=== PATIENT | male | born 1945 | race Caucasian/White ===

== ENCOUNTER 2018-01-09 18:25 | Inpatient (IN) | payer MEDICARE ==
--- NOTE | 2018-01-09 19:21 | ED ---
Shortness of Breath - HPI Summary HPI Summary: A 72 y/o male accompanied by family presents to ED c/o SOB. Additionally c/o chest pain/pressure reaching 2/10 in severity. As per triage, "Pt c/o chest pain and shortness of breath, especially when he sleeps and exerts himself". According to the patient, he believes he is experiencing the same symptoms as he did when he had a mitral valve replacement 6-7 years ago. He stated that his ripped mitral value was repaired as it was pushing blood into his chest. Additionally he had a bypass surgery. Furthermore, he has fevers in the night, denies chills. He stated that he is very SOB when he walks up stairs, bending over, taking a shower and completing every day routine activities. He stated that he just feels exhausted all the time. The symptoms became worse over the past couple weeks (today especially worse) coupled with hallucinations and edema of ankles. He noted that he has and takes medications and inhalers regularly. Does not take water pill. Current on several medications, just started Ativan 3 months ago. - History of Current Complaint Chief Complaint: EDChestPainROMI Time Seen by Provider: 01/09/18 18:53 Hx Obtained From: Patient Onset/Duration: Sudden Onset, Lasting Weeks, Still Present Timing: Constant Current Severity: Mild - 2/10 Dyspnea At: Rest Aggrevating Factors: Movement Alleviating Factors: Nothing Associated Signs & Symptoms: Fever, Edema - Allergy/Home Medications Allergies/Adverse Reactions: Allergies Allergy/AdvReac Type Severity Reaction Status Date / Time No Known Allergies Allergy Verified 01/09/18 21:40 Home Medications: Home Medications Anastrozole (NF) [Arimidex (NF)] 0.5 mg PO BID 01/09/18 [History Confirmed 01/09] Aspirin EC TAB* [Ecotrin EC Low Dose 81 MG*] 81 mg PO DAILY 01/09/18 [History Confirmed 01/09/18] Cyanocobalamin (Vitamin B-12) [Vitamin B-12] 1,000 mcg PO DAILY 01/09/18 [ History Confirmed 01/09/18] Metoprolol Succinate XL TAB* [Toprol XL TAB*] 50 mg PO DAILY 01/09/18 [History Confirmed 01/09/18] Oxybutynin XL TAB* [Ditropan XL TAB*] 5 mg PO DAILY 01/09/18 [History Confirmed 01/09/18] Ramipril CAP* [Altace CAP*] 10 mg PO DAILY 01/09/18 [History Confirmed 01/09/18] Rosuvastatin Calcium 20 mg PO DAILY 01/09/18 [History Confirmed 01/09/18] Tamsulosin CAP* [Flomax CAP*] 0.4 mg PO DAILY 01/09/18 [History Confirmed ] Vitamin E Acetate [Vitamin E] 1,000 units PO DAILY 01/09/18 [History Confirmed 01/09/18] PMH/Surg Hx/FS Hx/Imm Hx Endocrine/Hematology History: Denies: Hx Diabetes Cardiovascular History: Reports: Hx Hypertension, Other Cardiovascular Problems/ Disorders - AL Respiratory History: Reports: Hx Chronic Obstructive Pulmonary Disease (COPD) - Cancer History Cancer Type, Location and Year: Pancreatic - Surgical History Surgery Procedure, Year, and Place: abdominal hernia, bypass, mitral valve replacement Infectious Disease History: No Infectious Disease History: Denies: Traveled Outside the [place] in Last 30 Days - Family History Known Family History: Positive: Diabetes, Other - AL, prostate cancer, lung disease, abdominal cancer - Social History Alcohol Use: Occasionally Substance Use Type: Reports: None Smoking Status (MU): Former Smoker Review of Systems Positive: Fever, Fatigue. Negative: Chills Positive: Chest Pain Positive: Shortness Of Breath Positive: Edema Psychological: Other - POSITIVE: Hallucinations All Other Systems Reviewed And Are Negative: Yes Physical Exam - Summary Physical Exam Summary: General: well-appearing, no pain distress Skin: warm, color reflects adequate perfusion, dry Head: normal Eyes: EOMI, RENATA ENT: normal Neck: supple, nontender Respiratory: crackles of base Cardiovascular: RRR Abdomen: soft, nontender Bowel: present Musculoskeletal: strength/ROM intact, bilateral pedal edema Neurological: sensory/motor intact, A&O x3 Psychological: affect/mood appropriate Triage Information Reviewed: Yes Vital Signs On Initial Exam: Initial Vitals Temp Pulse Resp BP Pulse Ox 98.6 F 83 20 136/61 93 01/09/18 18:28 01/09/18 18:28 01/09/18 18:28 01/09/18 18:28 01/09/18 18:28 Vital Signs Reviewed: Yes Diagnostics - Vital Signs Vital Signs Temp Pulse Resp BP Pulse Ox 01/09/18 18:28 98.6 F 83 20 136/61 93 - Laboratory Result Diagrams: 01/09/18 19:19 01/09/18 19:19 Lab Statement: Any lab studies that have been ordered have been reviewed, and results considered in the medical decision making process. - Radiology CXR Radiology Interpretation Completed By: ED Physician - Vascular congestion. Pending official report. - EKG 1949 Cardiac Rate: Tachycardia - 163 BPM EKG Rhythm: Sinus Tachycardia EKG Interpretation: wide complex irregularly irregular tachycardia 1999 Cardiac Rate: NL - 65 BPM EKG Rhythm: Sinus Rhythm - ventricular bigeminy and trigeminy, ST depressions in lateral leads. Re-Evaluation - Re-Evaluation First Eval Re-Evaluation Time: 19:47 Comment: Patient is in ventricular tachycardia. In the ED room, the patient has a pulse of 169 BPM, O2 saturation of 94% and blood pressure of 109/84. Course/Dx - Course Course Of Treatment: Medications reviewed. Allergies noted. AMIODORONE, HEPARIN , MAGNESIUM AND LASIX GIVEN IN ED. ADMIT HOSPITALIST. DISCUSSED WITH CARDIOLOGY , DR EMMANUEL, WHO SAW THE PATIENT IN THE ED. - Diagnoses Provider Diagnoses: Ventricular tachycardia, CHF (congestive heart failure) - Physician Notifications Discussed Care of Patient With: Jospe Messina Time Discussed With Above Provider: 20:02 Instructed by Provider To: Other - Accepts patient for admission. Consult with Dr. Celestine Emmanuel at 2027 who will consult with patient. He also recommends more magnesium, heparin, lasics and amiodarone. - Critical Care Time Critical Care Time: 75-104 min Discharge - Sign-Out/Discharge Documenting (check all that apply): Patient Departure - ADMIT - Discharge Plan Condition: Guarded Disposition: ADMITTED TO [facility] Referrals: No Primary Care Phys,NOPCP [Primary Care Provider] - - Billing Disposition and Condition Condition: GUARDED Disposition: Admitted to [facility] - Attestation Statements Document Initiated by Scribe: Yes Documenting Scribe: Cayden Bennett Provider For Whom Scribe is Documenting (Include Credential): Slick Lainez MD Scribe Attestation: Cayden Hollis, scribed for Slick Lainez MD on 01/09/18 at [id number]. Scribe Documentation Reviewed: Yes Provider Attestation: The documentation as recorded by the scribe, Cayden Bennett accurately reflects the service I personally performed and the decisions made by me, Slick Lainez MD
[2018-01-09 19:30] LABS: ABS Basophils 0 10^3/ul (0-0.2); ABS Eosinophils 0.1 10^3/ul (0-0.6); ABS Lymphocytes 0.7 10^3/ul (1.0-4.8); ABS Monocytes 0.5 10^3/ul (0-0.8); ABS Neutrophils 3.8 10^3/ul (1.5-7.7); ABS Nucleated RBC 0 10^3/ul; Eosinophil % 1.4 % (0-6); Hematocrit 42 % (42-52); Lymphocyte % 14.3 % (25-47); Mean Corpuscular HGB Conc 33 g/dl (31-36); Mean Corpuscular Hemoglobin 32 pg (27-31); Mean Corpuscular Volume 96 fL (80-94); Mean Platelet Volume 10.3 um3 (7.4-10.4); Nucleated Red Blood Cells % 0.1; Platelet Count 111 10^3/ul (150-450); Red Blood Count 4.38 10^6/ul (4.00-5.40); Red Cell Distribution Width 15 % (10.5-15); White Blood Count 5.1 10^3/ul (3.5-10.8)
[2018-01-09 19:39] LABS: INR 1.14 (0.77-1.02)
[2018-01-09] MEDS ORDERED: Amiodarone 150 MG IVPREMIX* 150 MG/100 ML BAG IV ONE ×2 (19:49→20:35)
[2018-01-09] MEDS ORDERED: Amiodarone 360 MG IVPREMIX* 360 MG/200 ML BAG IV ONE ×2 (19:49→22:03)
[2018-01-09] MEDS ORDERED: Magnesium Sulfate 2 GM IV* 2 GM/50 ML BAG IVPB ONE (20:36)
[2018-01-09] MEDS ORDERED: Furosemide IV* 10 MG/ML VIAL (40 MG) IV ONE (20:38)
[2018-01-09] MEDS ORDERED: Heparin DRIP 25,000 UNITS(*) 25,000 UNITS/500 ML BAG IV SCH ×3 (20:45→21:45)
[2018-01-09] MEDS ORDERED: fentaNYL* 50 MCG/ML 2 ML VIAL (100 MCG VIAL) ONE (21:05)
[2018-01-09] MEDS ORDERED: Heparin VIAL(*) 5000 UNITS/ML VIAL (FIVE THOUSAND) IV PRN (21:11)
[2018-01-09] MEDS ORDERED: fentaNYL* 50 MCG/ML 2 ML VIAL (100 MCG VIAL) IV SLOW PU ONE ×2 (21:20→22:20)
[2018-01-09] MEDS ORDERED: Heparin VIAL(*) 5000 UNITS/ML VIAL (FIVE THOUSAND) ONE (21:28)
[2018-01-09] MEDS ORDERED: Aspirin TAB* 325 MG PO ONE (21:31)
[2018-01-09] MEDS ORDERED: LORazepam INJ* 2 MG/ML 1 ML VIAL IV PUSH ONE ×2 (21:39→22:20)
--- NOTE | 2018-01-09 21:39 | CONSULT ---
Subjective Date of Service: 01/09/18 Interval History: Date of consult and admission 01/09/2018 Service: Hospitalist CC: Dyspnea Reason for consult: CHF, Ventricular tachycardia HPI Mr. Frazier is a 72 year old man with a history of MV repair and cabg x 1 in 2010. He has prior tobacco use and copd and interstitial lung disease. He states they he had a heart catheterization 3 or 4 months ago (he is unsure why) but they found the graft that "did not take" and he did not need a stent. He has had progressive dyspnea all summer to the point of orthopnea and PND last several days. He has had confusion earlier today and agitation and took 3 of 0.5 mg ativans which he usually does not take. He has had palpitations for years unchanged. He has had lightheadedness but no presyncope or syncope. He was found with agitation, decompensated HF and recurrent incessant ventricular tachycardia Currently he has received - total 600 mg IV amiodarone in 150 mg increments in bolus followed by infusion protocol and also 400 mg oral amiodarone - 5 mg IV lopressor followed by 25 mg PO metoprolol - IV magnesium - 3 mg IV ativan and 100 mcg IV fentanyl - 20 mg IV lasix x 2 Late received 5 mg IV versed for agitation with good effect, remains with short episodes of NSVT (improved) Pmhx/surgical hx MV repair and cabg x [address] Montanez at [facility] ~ 2010 with ? post -op Afib. LVEF was normal at that time. He was told heart muscle was weak at [facility] this winter but details of this are very uncertain. Patient states had an angiogram earlier this year and no intervention was performed. [facility] for benign pancreatic lesions ~ 2010 Knee surgery Hernia surgery HTN Dyslipidemia CAD COPD/Interstitial lung disease Soc: 1 PPD since teenage years until a year ago, occasional alcohol, no drugs. Lives most of year in [place]. Lives 4 [place]/2 months in [place], [place]. Family hx: Mother had MAC lung disease, father CAD Allergies: NKDA Medications Active Medications: Albuterol/Ipratropium (Combivent Respimat(Nf)) 2 puff INH Q4H PRN; Protocol PRN Reason: SOB/WHEEZING Aspirin (Aspirin Ec Tab*) 81 mg PO DAILY DONAL Atorvastatin Calcium (Lipitor*) 40 mg PO DAILY [facility] Heparin Sodium (Porcine) (Heparin Vial(*)) 0 units IV .FOR BOLUSES PRN PRN Reason: HEPARIN DRIP BOLUSES Last Admin: 01/09/18 21:29 Dose: 6,000 units Heparin Sodium/Dextrose (Heparin Drip 25,000 Units(*)) 25,000 units in 500 mls @ 0 mls/hr IV PER RATE DONAL; Protocol Amiodarone HCl (Nexterone 360 Mg/200 Ml Ivpremix*) 360 mg in 200 mls @ 33.333 mls/hr IV ONCE ONE Stop: 01/10/18 04:02 Midazolam HCl 100 mg/ Sodium (Chloride) 100 mls @ 1 mls/hr IV Q24H DONAL; Protocol Metoprolol Tartrate (Lopressor Tab*) 25 mg PO Q8H DONAL Last Admin: 01/09/18 22:15 Dose: 25 mg (Ellipta 62.5 Mg) 62.5 mg INH DAILY [facility] Oxybutynin Chloride (Ditropan Xl Tab*) 5 mg PO DAILY [facility] Ramipril (Altace Cap*) 10 mg PO DAILY [facility] Tamsulosin HCl (Flomax Cap*) 0.4 mg PO DAILY [facility] Home Medications: Anastrozole (NF) [Arimidex (NF)] 0.5 mg PO BID 01/09/18 [History Confirmed 01/09] Aspirin EC TAB* [Ecotrin EC Low Dose 81 MG*] 81 mg PO DAILY 01/09/18 [History Confirmed 01/09/18] Cyanocobalamin (Vitamin B-12) [Vitamin B-12] 1,000 mcg PO DAILY 01/09/18 [ History Confirmed 01/09/18] Metoprolol Succinate XL TAB* [Toprol XL TAB*] 50 mg PO DAILY 01/09/18 [History Confirmed 01/09/18] Oxybutynin XL TAB* [Ditropan XL TAB*] 5 mg PO DAILY 01/09/18 [History Confirmed 01/09/18] Ramipril CAP* [Altace CAP*] 10 mg PO DAILY 01/09/18 [History Confirmed 01/09/18] Rosuvastatin Calcium 20 mg PO DAILY 01/09/18 [History Confirmed 01/09/18] Tamsulosin CAP* [Flomax CAP*] 0.4 mg PO DAILY 01/09/18 [History Confirmed ] Vitamin E Acetate [Vitamin E] 1,000 units PO DAILY 01/09/18 [History Confirmed 01/09/18] apmelata combivent Review of Systems - Measurements Intake and Output: Intake and Output Last 24 Hours 01/07/18 01/08/18 01/09/18 01/10/18 06:59 06:59 06:59 06:59 Intake Total 100 Balance 100 Weight 176 lb Intake: IV Fluids 100 - Review of Systems Constitutional Symptoms: Positive: Fatigue Negative: Weight Gain, Weight Loss Dermatology: Negative: Rash, Skin Lesions HEENT: Negative: Change in Hearing, Vertigo Eyes: Negative: Change in Vision, Double Vision Thyroid: Negative: Weight Loss, Weight Gain Pulmonary: Positive: Cough, Sputum, Wheezing, Shortness of Breath, COPD, Exercise Intolerance Cardiology: Positive: Shortness of Breath, Palpitations, Paroxysmal Nocturnal Dyspnea, Orthopnea Negative: Chest Pain, Swelling of Ankles, Peripheral Vascular Dis, Faintness , Syncope, Claudication Gastroenterology: Negative: Normal, Abdominal Pain, Nausea, Vomiting, Anorexia, Indigestion, Difficulty Swallowing, Heartburn, Constipation, Diarrhea, Blood in Stools, Change in Bowel Habits, Haematemesis, Melena, Other Genital - Urinary: Positive: Normal Negative: Dysuria, Hematuria Genitourinary - Male: Negative: Prostatism, Family Hx of Prostate Cancer Musculoskeletal: Negative: Joint Pain, Joint Stiffness Endocrinology: Positive: Thyroid Problems Negative: Polydipsia, Polyuria Hematologic/Lymphatic: Positive: Use of Antiplatelet Drugs Negative: Use of Anticoagulant Neurology: Negative: Diplopia, Numbness\\Paresthesiae Psychiatry: Negative: Unusual Anxiety, Suicidal Ideation Allergic/Immunologic: Negative: Hx HIV, Immunocompromise Review of Systems Statement: All other review of systems negative, unless stated above. Objective Vital Signs: Temp Pulse Resp BP Pulse Ox 98.6 F 83 20 136/61 93 01/09/18 18:28 01/09/18 18:28 01/09/18 21:23 01/09/18 18:28 01/09/18 18:28 Appearance: Patient appears agitated and anxious. Ears/Nose/Mouth/Throat: Clear Oropharnyx Neck: Trachea Midline, - - + jvd Respiratory: - - Patient has tachypnea and increased work of breathing with R>L rales Cardiovascular: RRR, No Edema, - - with frequent ectopy, no significnat murmur Abdominal: NL Sounds; No Tenderness; No Distention Extremities: No Clubbing, Cyanosis Skin: No Rash or Ulcers Neurological: Alert and Oriented x 3 Laboratory Results: 01/09/18 19:19 01/09/18 19:19 INR (Anticoag Therapy) 1.14 (0.77-1.02) H 01/09/18 19:19 APTT 31.2 seconds (26.0-36.3) 01/09/18 19:19 Total Bilirubin 1.00 mg/dL (0.2-1.0) 01/09/18 19:19 AST 13 U/L (13-39) 01/09/18 19:19 ALT 17 U/L (7-52) 01/09/18 19:19 Alkaline Phosphatase 46 U/L (34-104) 01/09/18 19:19 CK-MB (CK-2) 3.0 ng/mL (0.6-6.3) 01/09/18 19:19 B-Natriuretic Peptide 1942 pg/mL (-100) H 01/09/18 19:19 Total Protein 6.4 g/dL (6.4-8.9) 01/09/18 19:19 Albumin 3.9 g/dL (3.2-5.2) 01/09/18 19:19 Globulin 2.5 g/dL (2-4) 01/09/18 19:19 Albumin/Globulin Ratio 1.6 (1-3) 01/09/18 19:19 TSH 1.87 mcIU/mL (0.34-5.60) 01/09/18 19:19 01/09/18 19:19 Troponin I 0.02 mg 1.9 Diagnostic Imaging: CT 05/2017: Interval development of more pronounced interstitial infiltrates and innumerable ill defined micronodules. The differential diagnosis includes infectious or inflammatory process including respiratory bronchiolitis in the setting of smoking however underlying lymangitic carcinomatosis cannot be excluded. Increase in size and number of mediastinal lymph nodes although none are significantly enlarged. These may be reactive or neoplastic. Patient has a family history of MAC. He was told that the CT findings were not due to cancer and that it was scar tissue but he was not told what was from. 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 Cardiac catheterization 12/2010: Pre-op for Severe MVP: [facility] Dr. Darell Sims. LV gram normal LVEF. LM mild non-significant disease. LAD moderate 60% mid LAD lesion, mild disease elsewhere. Mild Lcx disease, RCA with 30-40% proximal-mid disesae. Cardiac catheterization earlier this year, thought might need stent but did not need CXR this admission: Prior sternotomy, MV and TV ring noted, b/l interstitial edema EKG Data: EKG admission: NSR, st/t changes diffusely suggestive of myocardial ischemia. PVC's with RBBB morphology and superior axis ekg repeat: Periods of ventricular tachycardia with same PVC morphology Assessment/Plan 1. Incessant monorphic VT, improved. Ruled out for ACS. 2. CHF 3. Prior primary MV repair also with TV repair 4. CAD, no history of [place] 5. COPD/ILD, history of tobacco use 6. HTN - Continue versed gtt to help reduce adrenergic drive to reduce arrhythmia burden. Patient not currently taking oral medications due to sedation - Continue IV amiodarone infusion protocol. Can give another 150 mg IV slow bolus x 3 overnight PRN. Obviously this is not a manager intermediate option given his lung disease. If has recurrent sustained episodes despite this and more beta- ochoa as BP tolerates will start lidocaine gtt. - Start IV lopressor 5 mg IV q6. Will increase as needed - s/p IV 40 mg lasix, good UOP. Will help lower LVEDP and hopefully reduce arrhythmia burden. Trend BMP/Mg and replace K and Mg as needed - Echo for later this AM ordered. - Will try to obtain echo and cardiac cath report from earlier this year for comparison. I am unsure at this point which came first, the VT or CHF. Regardless both will be continued to be treated. 120 minutes of bedside direct critical care time provided Thank you for allowing me to participate in the cardiovascular care of this patient
[2018-01-09] MEDS ORDERED: Aspirin 81 mg CHEW TAB* 81 MG TAB.CHEW ONE (21:43)
[2018-01-09] MEDS ORDERED: LORazepam INJ* 2 MG/ML 1 ML VIAL ONE (21:43)
[2018-01-09] MEDS ORDERED: Metoprolol Tartrate TAB* 25 MG ONE (21:43)
[2018-01-09] MEDS ORDERED: Metoprolol Tartrate TAB* 25 MG PO SCH (22:00)
[2018-01-09] MEDS ORDERED: Aspirin 81 mg CHEW TAB* 81 MG TAB.CHEW PO ONE (22:00)
[2018-01-09] MEDS ORDERED: Metoprolol Tartrate IV* 1 MG/ML 5 ML VIAL IV ONE (22:25)
[2018-01-09] MEDS ORDERED: NS 0.9% 100 ML* 100 ML ONE (22:29)
[2018-01-09] MEDS ORDERED: Albuterol/Ipratropium RESP(NF) MDI (Combivent Respimat) INH PRN (22:36)
[2018-01-09] MEDS ORDERED: Amiodarone IV VIAL* 3 ML ONE (22:57)
[2018-01-09] MEDS ORDERED: Amiodarone TAB* 400 MG ONE (22:57)
[2018-01-09] MEDS ORDERED: Furosemide IV* 10 MG/ML 2 ML VIAL (20 MG) ONE (22:57)
[2018-01-09] MEDS ORDERED: Amiodarone TAB* 400 MG PO ONE (22:58)
[2018-01-09] MEDS ORDERED: Furosemide IV* 10 MG/ML 2 ML VIAL (20 MG) IV ONE (22:58)
[2018-01-09] MEDS ORDERED: Dexmedetomidine* 400 MCG in NS 0.9% 100 ML* 96 ML IVPB SCH ×4 (23:00)
[2018-01-09] MEDS ORDERED: Midazolam* 1 MG/ML 10 ML VIAL (10 MG) ONE (23:07)
[2018-01-09] MEDS ORDERED: Ziprasidone IM INJ* 20 MG/ML VIAL ONE (23:09)
[2018-01-09] MEDS ORDERED: Midazolam BAG 1 MG/ML* 100 MG/100 ML BAG IV ONE (23:18)
[2018-01-09] MEDS ORDERED: Midazolam IV for DRIP* 100 MG in NS 0.9% 100 ML* 80 ML IV SCH (23:45)
[2018-01-10] MEDS: Metoprolol Tartrate IV* 1 MG/ML 5 ML VIAL IV SCH ×2 (00:06→06:21)
--- NOTE | 2018-01-10 02:21 | HP ---
CC: Dr. Levon Oden; Dr. Darell Sims * HISTORY AND PHYSICAL: DATE OF ADMISSION: 01/09/18 PRIMARY CARE PROVIDER: Dr. Levon Oden in [place], [place]. PRIMARY SILK WEAVER: Dr. Darell Sims, [place], [place]. CARDIAC SURGEON: Dr. Montanez at [place], [place]. ATTENDING PROVIDER: Dr. Josep Messina * (DICTATED BY BENNY PEÑA, JIMMIE) CHIEF COMPLAINT: Shortness of breath. HISTORY OF PRESENT ILLNESS: Mr. Frazier is a 72-year-old male with past medical history significant for asthma, allergies, benign pancreatic tumor, atrial fibrillation, BPH, hypertension, coronary artery disease, COPD, who states for several months now has not been feeling well. Earlier this year, he underwent a cardiac catheterization as he does follow up his heart issues. He states that he had no findings necessitating a stent placement at that time. He states he was having similar symptoms with fatigue, difficulty with shortness of breath with exertion approximately 7 years ago when he had a mitral valve repair. He denies any fevers, chills. He reports chest tightness for a few days. He states he has been short of breath all summer since he has been to [place]. He reports having worse shortness of breath with exertion, walking across the yard. He also notes that he is unable to sleep in bed and has to sleep in a recliner chair for approximately the last 3 to 4 weeks. He states that shortness of breath improves when he sits up. He had nausea 3 days ago. Two days ago, he reports diarrhea. He reports urinary frequency and urgency at baseline due to his BPH. He states that he feels as though his abdomen is bit more distended than normal and he has had some lower extremity edema that is improved today. He reports lightheadedness and dizziness. The patient feels that in general he has been having these symptoms for several months, but they have worsened over the last few weeks and even more so in the last few days. He has been having some hallucinations today. He denies currently being on a diuretic or blood thinning medication. He presented to the emergency room for further evaluation of his symptoms. In the emergency room, he was found to have tachycardic rhythm with a rate of 163, this rhythm appeared to be V-tach vs an atrial fibrillation with variance, within a few minutes he had a repeat EKG showing sinus rhythm with rate of 80 and ventricular bigeminy. He then again had a repeat EKG showing a sinus rhythm and another repeat EKG showing extreme tachycardia with rates up to the 160s, this appeared to be more of a ventricular tachycardia. He received a total of 450 mg of amiodarone bolus, was started on an amiodarone drip. He was also started on a heparin drip, received 20 mg of IV Lasix. He was given [address] Celestine Raygoza with Cardiology came to evaluate the patient. Hospice was also asked to evaluate the patient for admission. PAST MEDICAL HISTORY: 1. Asthma. 2. Allergies. 3. Benign pancreatic tumor. 4. BPH. 5. COPD. 6. Hypertension. 7. Coronary artery disease. 8. Possible history of atrial fibrillation. PAST SURGICAL HISTORY: 1. Status post bilateral cataract extractions. 2. Status post mitral valve repair and 1 vessel CABG. 3. Status post Whipple procedure. 4. Status post knee surgery. 5. Status post hernia surgery. 6. Status post several plastic surgeries. HOME MEDICATIONS: Include: 1. Tamsulosin 0.4 mg oral daily. 2. Rosuvastatin 20 mg oral daily. 3. Ramipril 10 mg oral daily. 4. Metoprolol succinate 50 mg oral daily. 5. Anastrozole 0.5 mg oral twice daily. 6. Ditropan XL 5 mg oral daily. 7. Aspirin 81 mg oral daily. 8. Vitamin E 1000 units oral daily. 9. Vitamin B12 1000 mcg oral daily. 10. Combivent Respimat inhaler 1 to 2 puffs inhalation every 4 hours as needed for shortness of breath or wheeze. 11. Ellipta inhaler 62.5 mcg inhalation 1 puff daily. ALLERGIES: No known drug allergies. FAMILY HISTORY: His father had a history of MAC. Father with a history of coronary artery disease. Paternal uncles with history of coronary artery disease. Maternal aunts with history of diabetes. Maternal grandmother with diabetes. Multiple uncles with prostate cancer. His father also had prostate cancer. He had a paternal grandmother with stomach cancer and a paternal grandfather with lung cancer. REVIEW OF SYSTEMS: I performed an 11-point review of systems. All the pertinent positives and negatives are mentioned in the history of present illness. The remaining review of systems is negative. PHYSICAL EXAMINATION GENERAL APPEARANCE: The patient is alert, pleasant, appears to be in no acute distress. VITAL SIGNS: Temperature 98.6, heart rate 83, respiratory rate 20, O2 sat 93% on room air, blood pressure 136/61. HEENT: Normocephalic, atraumatic. Pupils are equal and reactive to light. Extraocular movements are intact. RESPIRATORY: There is no accessory muscle use. The lungs have rhonchi, scattered bilateral. Crackles to bilateral bases. CARDIOVASCULAR: Regular rate and rhythm. S1, S2 present. Tachycardic. There are no murmurs, rubs, or gallops. ABDOMEN: Large, soft, nontender. There are bowel sounds present x4. EXTREMITIES: There is trace bilateral pedal edema. DP and PT pulses are 1+ and symmetric. MUSCULOSKELETAL: There is no clubbing or cyanosis noted. The patient exhibits good strength in all extremities. NEUROLOGICAL: The patient is alert and oriented x4, although he is having some periods of confusion. PSYCHOLOGICAL: The patient is calm and cooperative. SKIN: There are no rashes or abnormalities seen. DIAGNOSTIC STUDIES/LABORATORY DATA: Sodium 136, potassium 4.5, chloride 104, CO2 27, BUN 21, creatinine 1.31. Magnesium 1.9. INR 1.14. D-dimer 406. BNP 194. TSH 1.87. Troponin 0.02. White blood cell count 5.1, hemoglobin 14.0, hematocrit 42, platelet count 111. Chest x-ray from today, my interpretation is vascular congestion, it is pending official read. EKG from 1949 shows extreme tachycardia with a rate of 163, this could represent V- tach or an atrial fibrillation with variance since it has wide complex and irregularly irregular. EKG from 1957 shows sinus rhythm, rate of 80. The patient has a PVC. EKG from 1999 shows sinus rhythm, rate of 65, ventricular bigeminy. ST depressions in the lateral leads. EKG from 2024 shows an extreme tachycardia, rate of 149, this rhythm appears to be irregular and consistent with V-tach. IMPRESSION: Mr. Frazier is a 72-year-old male with past medical history significant for asthma, environmental allergies, benign pancreatic tumor, possible atrial fibrillation, benign prostatic hypertrophy, chronic obstructive pulmonary disease, hypertension, coronary artery disease, who presented to the hospital with complaints of shortness of breath. He will be admitted as an inpatient for atrial fibrillation with rapid ventricular rate vs ventricular tachycardia, shortness of breath and congestive heart failure. ASSESSMENT AND PLAN: 1. Ventricular tachycardia. Initially, the patient's EKG appeared to be an atrial fibrillation with variance, but upon repeat EKGs, his rhythm appeared to be consistent with ventricular tachycardia. He received amiodarone, a total of 450 mg bolus, and was started and on amiodarone drip in the ER. He was started on a heparin drip. He received IV metoprolol. He was started on metoprolol tartrate in the ER. He was seen at bedside by Cardiology and he was started on a heparin drip. His rate was better controlled. 2. Shortness of breath. I suspect this is secondary to acute congestive heart failure exacerbation. The patient has no history of congestive heart failure . He is not currently on diuretics, give him 20 mg of IV Lasix here in the ER to see how he diureses. He will be continued on diuretics per Cardiology. We are going to get an echocardiogram tomorrow and the differential for his shortness of breath is also pulmonary embolus. His D-dimer is elevated at 406. He is not stable enough for a CTA tonight. He will fully anticoagulated on heparin and once he stabilize tomorrow, he can have a CTA. 3. Chest tightness. We will trend the patient's troponins. Monitor him on telemetry. He will be continued on medical management for his coronary artery disease. 4. Hypertension. He has mostly been normotensive in the emergency room. We will continue him on metoprolol and ramipril. 5. Asthma. The patient will be continued on his home Ellipta and as needed Combivent. 6. Coronary artery disease. The patient will be continued on his home aspirin , statin, metoprolol. 7. Benign prostatic hypertrophy. He will be continued on his home Ditropan and Flomax. 8. Fluids, electrolytes, and nutrition: He will be on a low sodium, heart- healthy diet. 9. Code status: Full code. 10. DVT prophylaxis: He is at high risk, will be on heparin drip. 11. Disposition: Inpatient. TIME SPENT: Time for this admission was approximately 90 minutes, greater than half of that was spent at bedside with the patient in critical care time. The case has been discussed with the attending, Dr. Messina, who agrees with the plan of care. BENNY FELTON, SECURITY DOOR INSTALLER [id number]/[facility] #: [id number] DIANE
[2018-01-10] MEDS ORDERED: Midazolam* 1 MG/ML 2 ML VIAL (2 MG) ONE (02:58)
[2018-01-10] MEDS ORDERED: Midazolam* 1 MG/ML 2 ML VIAL (2 MG) IV ONE (03:00)
[2018-01-10] MEDS ORDERED: Midazolam* 1 MG/ML 10 ML VIAL (10 MG) ONE (03:19)
[2018-01-10] MEDS ORDERED: fentaNYL* 50 MCG/ML 2 ML VIAL (100 MCG VIAL) ONE (03:47)
[2018-01-10] MEDS ORDERED: Morphine INJ* 2 MG/ML 1 ML SYRINGE (TWO MG - NEW SYRINGE VERSION) IV ONE (03:50)
[2018-01-10] MEDS ORDERED: Morphine INJ* 2 MG/ML 1 ML SYRINGE (TWO MG - NEW SYRINGE VERSION) IV PRN (03:50)
[2018-01-10] MEDS ORDERED: Dexmedetomidine* 400 MCG in NS 0.9% 100 ML* 96 ML IVPB SCH (04:00)
[2018-01-10] MEDS ORDERED: Morphine INJ* 2 MG/ML 1 ML SYRINGE (TWO MG - NEW SYRINGE VERSION) ONE (04:03)
[2018-01-10] MEDS ORDERED: Succinylcholine* 20 MG/ML 10 ML VIAL ONE ×2 (04:22→04:29)
[2018-01-10] MEDS ORDERED: Etomidate* 2 MG/ML 20 ML VIAL (40 MG) ONE (04:29)
[2018-01-10] MEDS: Propofol* 100 ML ONE ×2 (04:30→10:08)
[2018-01-10] MEDS ORDERED: Propofol* 10 MG/ML 20 ML BTL IV PUSH ONE (04:37)
--- NOTE | 2018-01-10 05:24 | PN ---
Progress Note - Progress Note Date of Service: 01/10/18 Note: Mr Frazier was initially able to be adequately sedated with midazolam GTT, but this eventually became ineffective despite increasing the dose to 5mg/hr. He was given midazolam boluses of 3mg followed by 5mg, fentanyl 50mcgs, and morphine 2mg x2 without obtaining adequate sedation. He would fight and toss in bed for 2-3 minutes and the relax and develop apnea before rousing to fight briefly again with desaturation into the mid-80s. In preparation for intubation a nasal trumpet insertion was attempted in the L nare unsuccessfully precipitating mild/mod epistaxis. It was successfully placed in the R nare and ambu bag initiated to good effect. After sedation and paralysis, a quick look with the [place] revealed posterior pharyngeal blood and airway edema prompting the ED physician to be called. No attempts to intubate were made to prevent worsening of the edema until A MD Yehuda ED arrived and assumed the role of intubating physician. The intubation was difficult and an ABC was called. Please see Dr Blackman's and the ABC notes for details. At no time did Mr Frazier lose his pulse nor develop any circulatory or significant rhythm issues. Dr Edin MD intesivist on-call was apprised.
[2018-01-10 06:30] LABS: ABS Basophils 0 10^3/ul (0-0.2); ABS Eosinophils 0 10^3/ul (0-0.6); ABS Lymphocytes 0.3 10^3/ul (1.0-4.8); ABS Monocytes 0.5 10^3/ul (0-0.8); ABS Nucleated RBC 0 10^3/ul; Eosinophil % 0.1 % (0-6); Hematocrit 39 % (42-52); Mean Corpuscular HGB Conc 33 g/dl (31-36); Mean Corpuscular Hemoglobin 32 pg (27-31); Mean Corpuscular Volume 97 fL (80-94); Mean Platelet Volume 10.4 um3 (7.4-10.4); Nucleated Red Blood Cells % 0; Platelet Count 89 10^3/ul (150-450); Red Blood Count 4.06 10^6/ul (4.00-5.40); Red Cell Distribution Width 15 % (10.5-15); White Blood Count 6.8 10^3/ul (3.5-10.8)
[2018-01-10 06:32] LABS: EGFR Non-African American 52.1 (>60)
--- NOTE | 2018-01-10 06:42 | ED ---
Progress - Progress Note Progress Note: Time:0500 I was called emergently by ICU staff and Dr. Forbes to intubate the patient. Upon arrival patient was bagged by respiratory therapist with bag mask valve. Patient was bleeding from the mouth. I did use a gliedoscope to intubate patient. Upon introducing the Gliedoscope blade. The epiglottis were edematous, and the field poorly visualized because of bleeding. It took 3 trials from me to pass the tube through the vocal cords to trachea . I had to use smaller tube # 7. Tube Placement confirmed with capnography and auscultation. - Results/Orders Results/Orders: CT 05/2017: Interval development of more pronounced interstitial infiltrates and innumerable ill defined micronodules. The differential diagnosis includes infectious or inflammatory process including respiratory bronchiolitis in the setting of smoking however underlying lymangitic carcinomatosis cannot be excluded. Increase in size and number of mediastinal lymph nodes although none are significantly enlarged. These may be reactive or neoplastic. Patient has a family history of MAC. He was told that the CT findings were not due to cancer and that it was scar tissue but he was not told what was from. 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 Cardiac catheterization 12/2010: Pre-op for Severe MVP: [facility] Dr. Darell Sims. LV gram normal LVEF. LM mild non-significant disease. LAD moderate 60% mid LAD lesion, mild disease elsewhere. Mild Lcx disease, RCA with 30-40% proximal-mid disesae. Cardiac catheterization earlier this year, thought might need stent but did not need CXR this admission: Prior sternotomy, MV and TV ring noted, b/l interstitial edema Re-Evaluation - Re-Evaluation First Eval Re-Evaluation Time: 19:47 Comment: Patient is in ventricular tachycardia. In the ED room, the patient has a pulse of 169 BPM, O2 saturation of 94% and blood pressure of 109/84. Course/Dx - Course Course Of Treatment: Medications reviewed. Allergies noted. AMIODORONE, HEPARIN , MAGNESIUM AND LASIX GIVEN IN ED. ADMIT HOSPITALIST. DISCUSSED WITH CARDIOLOGY , DR RAYGOZA, WHO SAW THE PATIENT IN THE ED. - Diagnoses Provider Diagnoses: Ventricular tachycardia, CHF (congestive heart failure) - Provider Notifications Time Discussed With Above Provider: 20:02 Instructed by Provider To: Other - Accepts patient for admission. Consult with Dr. Celestine Raygoza at 2027 who will consult with patient. He also recommends more magnesium, heparin, lasics and amiodarone. - Critical Care Time Critical Care Time: 75-104 min Discharge - Sign-Out/Discharge Documenting (check all that apply): Patient Departure - Discharge Plan Condition: Critical Disposition: ADMITTED TO [facility] - Billing Disposition and Condition Condition: CRITICAL Disposition: Admitted to [facility]
[2018-01-10] MEDS ORDERED: Furosemide IV* 10 MG/ML VIAL (40 MG) IV ONE (07:00)
[2018-01-10] MEDS ORDERED: Furosemide IV* 10 MG/ML VIAL (40 MG) ONE (07:17)
--- NOTE | 2018-01-10 07:48 | RAD ---
Indication: Shortness of breath. Single frontal view of the chest performed at 1917 hours was reviewed. Comparison is made with previous exam dated January 10, 2018. Cardiomegaly persists. Patient is status post transsternal thoracotomy and aortic valve replacement. Interstitial edema is improved. No pleural fluid is identified. IMPRESSION: CARDIOMEGALY WITH INTERSTITIAL EDEMA IMPROVED. ENDOTRACHEAL TUBE HAS BEEN REMOVED. R1
[2018-01-10] MEDS ORDERED: Amiodarone 360 MG IVPREMIX* 360 MG/200 ML BAG IV ONE (08:35)
--- NOTE | 2018-01-10 08:36 | PN ---
Cardiology Progress Note Date of Service: 01/10/18 Attention coders, please do not bill for this encounter: Patient now intubated, heavily sedated on propofol. NSVT suppressed as long as heavily sedated. When sedation lightened, arrhythmias return. Given another 40 mg IV lasix this AM with good UOP History clarified as below 05/17/2017 Cardiac cath for LV dysfunction Moderate LAD lesion (FFR negative) and moderate RCA lesion. Atretic YU graft Severe LV dysfunction No significant mitral regurgitation. A/P 1. VT Storm - SBP 90's while sedated 2. NICM/Systolic HF 3. s/p primary MV repair and also had TV repair at that time - Echo this AM severe LV dysfunction, MV repair functioning well 4. CAD, non-obstructive with YU graft placed at time of repair 5. Prior tobacco use, quit 1 year with history of COPD and pulmonary fibrosis, not oxygen dependent 6. Respiratory failure - Intubated, sedated. Maintaining 02 sats on 40% Fi02 and 5 of PEEP - Appreciated IM/ICU co-management - Discussed with Dr. Dimas, Heart failure specialist and patient to be accepted to the [facility] for further evaluation and management. He will contact Dr. Loaiza, EP district extension service agent regarding this case. Albuterol/Ipratropium (Combivent Respimat(Nf)) 2 puff INH Q4H PRN; Protocol Heparin Sodium (Porcine) (Heparin V PRN Reason: SOB/WHEEZING Aspirin (Aspirin Ec Tab*) 81 mg PO DAILY DONAL Atorvastatin Calcium (Lipitor*) 40 mg PO DAILY SCHial(*)) 0 units IV .FOR BOLUSES PRN PRN Reason: HEPARIN DRIP BOLUSES Last Admin: 01/09/18 21:29 Dose: 6,000 units Heparin Sodium/Dextrose (Heparin Drip 25,000 Units(*)) 25,000 units in 500 mls @ 0 mls/hr IV PER RATE DONAL; Protocol Midazolam HCl 100 mg/ Sodium (Chloride) 100 mls @ 1 mls/hr IV Q24H DONAL; Protocol Last Admin: 01/09/18 23:50 Dose: 1 mls/hr Dexmedetomidine HCl 400 mcg/ (Sodium Chloride) 100 mls @ 0 mls/hr IVPB .( Initial Rate) DONAL; Protocol Metoprolol Tartrate (Lopressor Iv*) 5 mg IV Q6H DONAL Last Admin: 01/10/18 06:21 Dose: Not Given Amiodarone gtt at 0.5 mg/min Oxybutynin Chloride (Ditropan Xl Tab*) 5 mg PO DAILY DONAL Tamsulosin HCl (Flomax Cap*) 0.4 mg PO DAILY DONAL Umeclidinium/Vilanterol (Anoro 62.5/25 Ellipta Device (Nf)) 62.5 inh INH DAILY DONAL
--- NOTE | 2018-01-10 08:44 | RAD ---
Indication: ET tube placement. Single frontal view of the chest performed at 0501 hours was reviewed. Comparison is made with previous exam dated January 09, 2018. Cardiomegaly is noted. Interstitial edema consistent with CHF which is increased since previous exam. ET tube is at the level of the aortic arch. IMPRESSION: CARDIOMEGALY. INTERSTITIAL EDEMA CONSISTENT WITH CHF. ET TUBE IN APPROPRIATE LOCATION. R1
[2018-01-10] MEDS ORDERED: Amiodarone 360 MG IVPREMIX* 360 MG/200 ML BAG IV SCH (09:00)
[2018-01-10] MEDS ORDERED: Ramipril CAP* 10 MG PO SCH (09:00)
[2018-01-10] MEDS ORDERED: Atorvastatin* 40 MG TAB PO SCH (09:00)
[2018-01-10] MEDS ORDERED: Aspirin EC TAB* 81 MG TAB.EC PO SCH (09:00)
[2018-01-10] MEDS ORDERED: Tamsulosin CAP* 0.4 MG PO SCH (09:00)
[2018-01-10] MEDS ORDERED: Oxybutynin XL TAB* 5 MG PO SCH (09:00)
[2018-01-10] MEDS ORDERED: ELLIPTA INH SCH ×2 (09:00)
--- NOTE | 2018-01-10 09:10 | ECHO ---
Patient: RICK GAO [facility] Rec#: [id number] : 1945 Date: 01/10/2018 Age: 72y Height: 165 cm / 65.0 in Weight: 79.8 kg / 175.9 lbs Sex: M BSA: 1.87 Room#: [facility] Admit Date#: 01/09/2018 Type: Inpatient Referring: Monisha Bond NP Reading: Celestine Raygoza DO Finishing And Shipping Supervisor: Monisha [facility]UN[facility] Transthoracic Echocardiogram Indication: New A-fib, shortness of breath. BP: 101/63 HR: 50 Rhythm: Bradycardia Findings History: S/P MV and TV repairs, CABG, COPD, smoker, CHF, HTN. Patient was sedated, intubated, and mechanically ventilated during this study. Technical Comments: The study is technically limited due to patient being intubated and on a ventilator. Completed at 0800. Left Ventricle: The left ventricular chamber size is mildly dilated. Mild concentric left ventricular hypertrophy is observed. Severe global hypokinesis of the left ventricle is observed. There is severely decreased left ventricular systolic function.LVEF is 25% Left Atrium: The left atrium is moderately dilated. Right Ventricle: The right ventricle is moderately dilated. The right ventricular global systolic function is moderately reduced. Right Atrium: The right atrium is moderately dilated. Aortic Valve: The aortic valve is trileaflet. The aortic valve leaflets are mildly thickened. There is a trace of aortic regurgitation. There is no evidence of aortic stenosis. Mitral Valve: There is mild mitral regurgitation. There is no evidence of mitral stenosis. The mean gradient across the mitral valve is 3 mmHg. The pressure half time of the mitral valve is 115 msec. Mitral valve repair functioning normally. Tricuspid Valve: There is trace tricuspid regurgitation. Unable to estimate the right ventricular systolic pressure. Tricuspid valve repair is functioning normally. Pulmonic Valve: The pulmonic valve appears normal. There is trace to mild pulmonic regurgitation. There is no pulmonic stenosis. Pericardium: There is no significant pericardial effusion. Aorta: There is mild dilatation of the ascending aorta.Plaque is noted in the ascending aorta The aortic arch is not well visualized. There is mild dilatation of the aortic root. Pulmonary Artery: The main pulmonary artery is not well visualized. Venous: Unable to accurately comment on the size collapsibility of the IVC as the patient in known to be on mechanical ventilation. Conclusions The left ventricular chamber size is mildly dilated. Mild concentric left ventricular hypertrophy is observed. Severe global hypokinesis of the left ventricle is observed. There is severely decreased left ventricular systolic function. LVEF is 25% The left atrium is moderately dilated. The right ventricle is moderately dilated. The right ventricular global systolic function is moderate to severely reduced. Mitral valve repair functioning normally. Tricuspid valve repair is functioning normally. Unable to estimate the right ventricular systolic pressure. There is mild dilatation of the ascending aorta and plaque is noted in the ascending aorta None prior for comparison at time of interpretation Measurements Name Value Normal Range RVIDd (AP) 2D 4 cm (0.9 - 2.6) RAd ISD 4CH 5.6 cm (3.4 - 4.9) RA (A4C)W 5.6 cm (2.9 - 4.6) IVSd (2D) 1.1 cm (0.6 - 1) LVPWd (2D) 1.1 cm (0.6 - 1) LVIDd (2D) 5.8 cm (3.6 - 5.4) LVIDs (2D) 4.5 cm - LV FS (2D) 23 % (25 - 45) Aortic Annulus 1.8 cm (1.4 - 2.6) Ao root diameter (2D) 3.8 cm (2.1 - 3.5) Ascending Ao 3.8 cm (2.1 - 3.4) LAd ISD 4CH 6.7 cm (2.9 - 5.3) LA ISD 4CH W 5.7 cm (2.5 - 4.5) Name Value Normal Range LA ESV BP (A/L) index 49 ml/m2 - Name Value Normal Range MV E-wave Vmax 1.5 m/sec - MV deceleration time 415 msec - MV A-wave Vmax 0.6 m/sec - MV E:A ratio 2.4 ratio - LV septal e' Vmax 0.03 m/sec - LV lateral e' Vmax 0.04 m/sec - LV E:e' septal ratio 50 ratio - LV E:e' lateral ratio 37.5 ratio - Name Value Normal Range AV Vmax 0.8 m/sec - AV VTI 21.1 cm - AV peak gradient 2 mmHg - AV mean gradient 1 mmHg - LVOT Vmax 0.6 m/sec - LVOT VTI 15.2 cm - LVOT peak gradient 2 mmHg - LVOT mean gradient 1 mmHg - TYLER Vmax 0.6 m/sec - Name Value Normal Range MV Vmax 1.6 m/sec - MV VTI 61 cm - MV peak gradient 10 mmHg - MV mean gradient 3 mmHg - MV PHT 115 msec - Name Value Normal Range TR Vmax 2 m/sec - TR peak gradient 16 mmHg - Name Value Normal Range PV Vmax 0.5 m/sec - PV peak gradient 1 mmHg -
[2018-01-10] MEDS ORDERED: Aspirin 81 mg CHEW TAB* 81 MG TAB.CHEW G TUBE SCH (09:53)
[2018-01-10] MEDS ORDERED: Atorvastatin* 40 MG TAB G TUBE SCH (09:54)
[2018-01-10] MEDS ORDERED: Propofol* 200 ML ONE (10:05)
--- NOTE | 2018-01-10 10:33 | DS ---
Patient Name: Eleuterio Frazier Admission Date: 01/09/18 Discharge Date: 01/10/18 Attending Physician: Freddie Jesus PCP Dr. Levon Oden in [place], [place]. Primary Court Stenographer: Dr. Darell Sims, [place], [place]. Cardiac Surgeon: Dr. Montanez at [place], [place]. Consulting Physician(s): Celestine Raygoza (Cardiology) Condition on Discharge: Critical Final Diagnosis: Current Active Problems CAD (coronary artery disease) (Acute) I25.10 CHF (congestive heart failure) (Acute) I50.9 COPD (chronic obstructive pulmonary disease) (Acute) J44.9 HLD (hyperlipidemia) (Acute) E78.5 HTN (hypertension) (Acute) I10 Hx of CABG (Acute) Respiratory failure (Acute) J96.90 Ventricular tachycardia, sustained (Acute) I47.2 Procedures: TTE 01/09/18 The left ventricular chamber size is mildly dilated. Mild concentric left ventricular hypertrophy is observed. Severe global hypokinesis of the left ventricle is observed. There is severely decreased left ventricular systolic function. LVEF is 25% The left atrium is moderately dilated. The right ventricle is moderately dilated. The right ventricular global systolic function is moderate to severely reduced. Mitral valve repair functioning normally. CXR 01/10/18 IMPRESSION: CARDIOMEGALY. INTERSTITIAL EDEMA CONSISTENT WITH CHF. ET TUBE IN APPROPRIATE LOCATION. History of Present Illness Mr. Frazier is a 72-year-old male with past medical history significant for asthma , allergies, benign pancreatic tumor, atrial fibrillation, BPH, hypertension, coronary artery disease, COPD, who states for several months now has not been feeling well. Earlier this year, he underwent a cardiac catheterization as he does follow up his heart issues. He states that he had no findings necessitating a stent placement at that time. He states he was having similar symptoms with fatigue, difficulty with shortness of breath with exertion approximately 7 years ago when he had a mitral valve repair. He denies any fevers, chills. He reports chest tightness for a few days. He states he has been short of breath all summer since he has been to [place]. He reports having worse shortness of breath with exertion, walking across the yard. He also notes that he is unable to sleep in bed and has to sleep in a recliner chair for approximately the last 3 to 4 weeks. He states that shortness of breath improves when he sits up. He had nausea 3 days ago. Two days ago, he reports diarrhea. He reports urinary frequency and urgency at baseline due to his BPH. He states that he feels as though his abdomen is bit more distended than normal and he has had some lower extremity edema that is improved today. He reports lightheadedness and dizziness. The patient feels that in general he has been having these symptoms for several months, but they have worsened over the last few weeks and even more so in the last few days. He has been having some hallucinations today. He denies currently being on a diuretic or blood thinning medication. He presented to the emergency room for further evaluation of his symptoms. In the emergency room, he was found to have tachycardic rhythm with a rate of 163, this rhythm appeared to be V- tach vs an atrial fibrillation with variance, within a few minutes he had a repeat EKG showing sinus rhythm with rate of 80 and ventricular bigeminy. He then again had a repeat EKG showing a sinus rhythm and another repeat EKG showing extreme tachycardia with rates up to the 160s, this appeared to be more of a ventricular tachycardia. He received a total of 450 mg of amiodarone bolus, was started on an amiodarone drip. He was also started on a heparin drip, received 20 mg of IV Lasix. He was given [address] Celestine Raygoza with Cardiology came to evaluate the patient. Laboratory/Data Laboratory Results - last 24 hr 01/09/18 01/09/18 01/09/18 19:19 19:19 19:19 WBC 5.1 RBC 4.38 Hgb 14.0 Hct 42 MCV 96 H MCH 32 H MCHC 33 RDW 15 Plt Count 111 L MPV 10.3 Neut % (Auto) 74.1 Lymph % (Auto) 14.3 L [place] % (Auto) 9.8 H Eos % (Auto) 1.4 Baso % (Auto) 0.4 Absolute Neuts (auto) 3.8 Absolute Lymphs (auto) 0.7 L Absolute Monos (auto) 0.5 Absolute Eos (auto) 0.1 Absolute Basos (auto) 0 Absolute Nucleated RBC 0 Nucleated RBC % 0.1 INR (Anticoag Therapy) 1.14 H APTT 31.2 D-Dimer, Quantitative 406 H Patient Temperature ABG pH ABG pH (Temp Correct) ABG pCO2 ABG pCO2 (Temp Corrct ABG pO2 ABG pO2 (Temp Correct ABG HCO3 ABG O2 Saturation ABG Base Excess Respiration Rate O2 Delivery Device Ventilator Type Vent Mode FiO2 Inspiratory Time PEEP Pressure Support Pressure Control EPAP IPAP BiPAP Sodium 136 Potassium 4.5 Chloride 104 Carbon Dioxide 27 Anion Gap 5 BUN 21 Creatinine 1.13 Est GFR ( Amer) 77.4 Est GFR (Non-Af Amer) 64.0 BUN/Creatinine Ratio 18.6 Glucose 108 H Lactic Acid Calcium 9.2 Magnesium 1.9 Total Bilirubin 1.00 AST 13 ALT 17 Alkaline Phosphatase 46 Total Creatine Kinase 89 CK-MB (CK-2) 3.0 Troponin I 0.02 C-Reactive Protein 4.06 B-Natriuretic Peptide Total Protein 6.4 Albumin 3.9 Globulin 2.5 Albumin/Globulin Ratio 1.6 Triglycerides Cholesterol LDL Cholesterol HDL Cholesterol Lipase 19 TSH 1.87 01/09/18 01/09/18 01/09/18 19:19 19:19 21:40 WBC RBC Hgb Hct MCV MCH MCHC RDW Plt Count MPV Neut % (Auto) Lymph % (Auto) [place] % (Auto) Eos % (Auto) Baso % (Auto) Absolute Neuts (auto) Absolute Lymphs (auto) Absolute Monos (auto) Absolute Eos (auto) Absolute Basos (auto) Absolute Nucleated RBC Nucleated RBC % INR (Anticoag Therapy) APTT D-Dimer, Quantitative Patient Temperature ABG pH ABG pH (Temp Correct) ABG pCO2 ABG pCO2 (Temp Corrct ABG pO2 ABG pO2 (Temp Correct ABG HCO3 ABG O2 Saturation ABG Base Excess Respiration Rate O2 Delivery Device Ventilator Type Vent Mode FiO2 Inspiratory Time PEEP Pressure Support Pressure Control EPAP IPAP BiPAP Sodium Potassium Chloride Carbon Dioxide Anion Gap BUN Creatinine Est GFR ( Amer) Est GFR (Non-Af Amer) BUN/Creatinine Ratio Glucose Lactic Acid 0.9 Calcium Magnesium Total Bilirubin AST ALT Alkaline Phosphatase Total Creatine Kinase CK-MB (CK-2) Troponin I 0.01 C-Reactive Protein B-Natriuretic Peptide 1942 H Total Protein Albumin Globulin Albumin/Globulin Ratio Triglycerides Cholesterol LDL Cholesterol HDL Cholesterol Lipase TSH 01/09/18 01/10/18 01/10/18 23:23 01:40 06:01 WBC RBC Hgb Hct MCV MCH MCHC RDW Plt Count MPV Neut % (Auto) Lymph % (Auto) [place] % (Auto) Eos % (Auto) Baso % (Auto) Absolute Neuts (auto) Absolute Lymphs (auto) Absolute Monos (auto) Absolute Eos (auto) Absolute Basos (auto) Absolute Nucleated RBC Nucleated RBC % INR (Anticoag Therapy) APTT D-Dimer, Quantitative Patient Temperature Not Reportable ABG pH 7.29 L ABG pH (Temp Correct) Not Reportable ABG pCO2 57 H ABG pCO2 (Temp Corrct Not Reportable ABG pO2 87 ABG pO2 (Temp Correct Not Reportable ABG HCO3 24.5 ABG O2 Saturation 97.7 ABG Base Excess -0.4 Respiration Rate Not Reportable O2 Delivery Device N/c Ventilator Type Not Reportable Vent Mode Not Reportable FiO2 Not Reportable Inspiratory Time Not Reportable PEEP Not Reportable Pressure Support Not Reportable Pressure Control Not Reportable EPAP Not Reportable IPAP Not Reportable BiPAP Not Reportable Sodium 134 L Potassium 5.3 H Chloride 103 Carbon Dioxide 24 Anion Gap 7 BUN 25 H Creatinine 1.35 H Est GFR ( Amer) 63.0 Est GFR (Non-Af Amer) 52.1 BUN/Creatinine Ratio 18.5 Glucose 180 H Lactic Acid Calcium 8.2 L Magnesium 2.0 Total Bilirubin AST ALT Alkaline Phosphatase Total Creatine Kinase CK-MB (CK-2) Troponin I 0.02 C-Reactive Protein B-Natriuretic Peptide Total Protein Albumin Globulin Albumin/Globulin Ratio Triglycerides 51 Cholesterol 62 LDL Cholesterol 23 HDL Cholesterol 28.5 Lipase TSH 01/10/18 01/10/18 06:01 06:01 WBC 6.8 RBC 4.06 Hgb 13.0 L Hct 39 L MCV 97 H MCH 32 H MCHC 33 RDW 15 Plt Count 89 L MPV 10.4 Neut % (Auto) 87.7 H Lymph % (Auto) 4.0 L [place] % (Auto) 8.0 H Eos % (Auto) 0.1 Baso % (Auto) 0.2 Absolute Neuts (auto) 6.0 Absolute Lymphs (auto) 0.3 L Absolute Monos (auto) 0.5 Absolute Eos (auto) 0 Absolute Basos (auto) 0 Absolute Nucleated RBC 0 Nucleated RBC % 0 INR (Anticoag Therapy) APTT 68.2 H D-Dimer, Quantitative Patient Temperature ABG pH ABG pH (Temp Correct) ABG pCO2 ABG pCO2 (Temp Corrct ABG pO2 ABG pO2 (Temp Correct ABG HCO3 ABG O2 Saturation ABG Base Excess Respiration Rate O2 Delivery Device Ventilator Type Vent Mode FiO2 Inspiratory Time PEEP Pressure Support Pressure Control EPAP IPAP BiPAP Sodium Potassium Chloride Carbon Dioxide Anion Gap BUN Creatinine Est GFR ( Amer) Est GFR (Non-Af Amer) BUN/Creatinine Ratio Glucose Lactic Acid Calcium Magnesium Total Bilirubin AST ALT Alkaline Phosphatase Total Creatine Kinase CK-MB (CK-2) Troponin I C-Reactive Protein B-Natriuretic Peptide Total Protein Albumin Globulin Albumin/Globulin Ratio Triglycerides Cholesterol LDL Cholesterol HDL Cholesterol Lipase TSH Hospital Course The patient was admitted to the ICU. He continued to have episodes of VT and became increasingly agitated. The patient was given several different medications for his agitation. His agitation began to subside but he then had periods of apnea. At that point the decision was made to intubate the patient. The patient was a difficult intubation and blood was suctioned from the patients airway afterwards. After intubation and adequate sedation there was a marked reduction in the patients ectopy on telemetry monitoring. Cardiology arranged for transfer to [place] for electrophysiology evaluation for persistent VT. Discharge Medications Aspirin 81mg po daily Lipitor 40mg po daily Amiodarone gtt Propofol gtt Code Status Full Code Time spent: > 30 mins
[2018-01-10] MEDS ORDERED: Propofol* 100 ML IV SCH (11:00)
[2018-01-10 11:28] VITALS: BP 115/68
[2018-01-10] MEDS ORDERED: CMC:Anastrozole (NF) 1 MG TAB PO SCH (12:00)
== END 2018-01-10 11:23 | disposition short-term general hospital (02) | DRG 308 ==
LOC: ED 18:25 → OBSVTOIN 20:32 → ICU 20:32
PROVIDERS: ADMIT Hospitalist; ATTEND Internal Medicine
PROC: 0BH17EZ Insertion of Endotracheal Airway into Trachea, Via Natural or Artificial Opening (ICD-10-PCS; principal; 2018-01-10)
PROC: 5A1935Z Respiratory Ventilation, Less than 24 Consecutive Hours (ICD-10-PCS; 2018-01-10)
DX: I47.2 Ventricular tachycardia (principal); I50.21 Acute systolic (congestive) heart failure; J96.00 Acute respiratory failure, unspecified whether with hypoxia or hypercapnia; J44.9 Chronic obstructive pulmonary disease, unspecified; I11.0 Hypertensive heart disease with heart failure; I25.10 Atherosclerotic heart disease of native coronary artery without angina pectoris; I48.91 Unspecified atrial fibrillation; N40.0 Benign prostatic hyperplasia without lower urinary tract symptoms; R41.0 Disorientation, unspecified; R06.01 Orthopnea; Z86.018 Personal history of other benign neoplasm; Z95.1 Presence of aortocoronary bypass graft; Z79.82 Long term (current) use of aspirin; Z79.899 Other long term (current) drug therapy; Z82.49 Family history of ischemic heart disease and other diseases of the circulatory system; Z83.3 Family history of diabetes mellitus; Z80.42 Family history of malignant neoplasm of prostate; Z80.0 Family history of malignant neoplasm of digestive organs; Z80.1 Family history of malignant neoplasm of trachea, bronchus and lung; Z87.891 Personal history of nicotine dependence
CPT/HCPCS: 36415; 36600; 71045; 80048; 80053; 80061; 82550; 82553; 82803; 83605; 83690; 83735; 83880; 84443; 84484; 85025; 85379; 85610; 85730; 86140; 87641; 92950; 93005; 93306; 94002; 99284; A9270-GY; J0282; J0330; J1644; J1940; J2060; J2250; J2270; J2704; J3010; J3475; J3486; J3490

== ENCOUNTER 2019-01-09 16:53 | Emergency (ER) | payer MEDICARE ==
[2019-01-09 17:12] VITALS: BP 124/47
--- NOTE | 2019-01-09 17:51 | UC ---
Respiratory Complaint HPI - HPI Summary HPI Summary: 73yo man with complex history of CHF, past VT with defibrillator and pacemaker, COPD, lung scarring tracked with q6mo CT scans, presents with a week long hx of malaise, congested cough productive of green sputum, and shortness of breath. He has had fever for the past 3 days, with regular use of acetaminophen and Dayquil. He has a history of chronic sinusitis and in the ast has used courses of levaquin to initiate on occasions of respiratory illness related to sinus drainge. He has had assessments at both [facility] and [facility] in November and December, with extensive med changes over the past month. He reports recent renal impairment--creatinine of 2 on 12/27 but he has had medication adjustments since then with labs on 01.02 which are not available to me. - History of Current Complaint Chief Complaint: UCGeneralIllness Stated Complaint: SOB Time Seen by Provider: 01/09/19 16:55 Hx Obtained From: Patient, Family/Health Care Law Specialist - here with his . Onset/Duration: Gradual Onset, Lasting Days - 6 Timing: Constant Severity Initially: Moderate Severity Currently: Moderate Pain Intensity: 0 Character: Cough: Productive Aggravating Factors: Exertion, Deep Breaths Alleviating Factors: Other - using Anoro Associated Signs And Symptoms: Positive: Dyspnea, Fever, Nasal Congestion, Sinus Discomfort - Risk Factors Cardiac Risk Factors: CHF, CAD Pseudomonas Risk Factors: Chronic Lung Disease - Allergies/Home Medications Allergies/Adverse Reactions: Allergies Allergy/AdvReac Type Severity Reaction Status Date / Time No Known Allergies Allergy Verified 01/09/19 16:58 Home Medications: Home Medications Amiodarone TAB* [Cordarone TAB*] 200 mg PO EVERY OTHER DAY 01/09/19 [History Confirmed 01/09/19] Apixaban [Eliquis] 5 mg PO 01/09/19 [History] Ascorbic Acid [Vitamin C] 100 mg PO 01/09/19 [History] Aspirin [Aspir-Low] 81 mg PO 01/09/19 [History] Azelastine/Fluticasone DIEGO(NF [Dymista(NF)] 1 spray BOTH NARES 01/09/19 [History ] Carvedilol 3.125 mg PO 01/09/19 [History] Cholecalciferol (Vitamin D3) [Vitamin D3] 2,000 unit PO 01/09/19 [History] Cyanocobalamin (Vitamin B-12) [B-12] 1,000 mcg PO 01/09/19 [History] Finasteride [Propecia] 1 mg PO 01/09/19 [History] Montelukast Sodium TAB* [Singulair TAB*] 10 mg PO DAILY 01/09/19 [History Confirmed 01/09/19] [place]-3 Fatty Acids [[place]-3] 1,000 mg PO 01/09/19 [History] Oxybutynin Chloride 5 mg PO 01/09/19 [History] Pantoprazole TAB * [Protonix TAB*] 40 mg PO DAILY 01/09/19 [History Confirmed ] Rosuvastatin (NF) [Crestor (NF)] 20 mg PO 1700 01/09/19 [History Confirmed 01/09] Sacubitril/Valsartan (NF) [Entresto (NF)] 1 tab PO 01/09/19 [History] Tadalafil [Cialis] 5 mg PO 01/09/19 [History] Tamsulosin HCl 0.4 mg PO 01/09/19 [History] Testosterone Cypionate 100 mg IM 01/09/19 [History] Torsemide 10 mg PO 01/09/19 [History] Umeclidin/Vilant 62.5 MDI(NF) [ANORO 62.5/25 Ellipta DEVICE (NF)] 1 aer IN 01/09 [History] buPROPion HCl [Bupropion HCl Xl] 150 mg PO 01/09/19 [History] raNITIdine HCl [Ranitidine HCl] 300 mg PO 01/09/19 [History] PMH/Surg Hx/FS Hx/Imm Hx Previously Healthy: No Cardiovascular History: Cardiac Disease, Pacemaker/ICD Respiratory History: COPD, Other - sleep apnea, untreated. GI/ History: Other - Whipple procedure done for past pancreatic tumor - Surgical History Surgical History: Yes Surgery Procedure, Year, and Place: abdominal hernia, bypass, mitral valve replair; ICD/Pacemaker placed; Open heart Surgery x 2; Whipple 2008; Plastic Surgery - Family History Known Family History: Positive: Diabetes, Other - [place], prostate cancer, lung disease, abdominal cancer; mr MAC - Social History Occupation: Retired Lives: With Family Alcohol Use: Rare Substance Use Type: None Smoking Status (MU): Former Smoker Review of Systems All Other Systems Reviewed And Are Negative: Yes Constitutional: Positive: Fever, Fatigue ENT: Positive: Nasal Discharge, Sinus Congestion Respiratory: Positive: Shortness Of Breath, Cough Cardiovascular: Negative: Palpitations, Chest Pain Genitourinary: Positive: Frequency, Other - hx of BPH Motor: Positive: Negative Neurovascular: Positive: Negative Musculoskeletal: Positive: Arthralgia Neurological: Negative: Headache Psychological: Positive: Anxious Is Patient Immunocompromised?: No Physical Exam Triage Information Reviewed: Yes Appearance: No Pain Distress, Ill-Appearing - looks chronically unwell, frequent congested cough, hoarse voice, Other: - conversant, not diaphoretic Vital Signs: Initial Vital Signs Temp 100.1 F 01/09/19 17:02 Pulse 45 01/09/19 17:02 Resp 22 01/09/19 17:02 BP 124/47 01/09/19 17:02 Pulse Ox 95 01/09/19 17:02 Eyes: Positive: Conjunctiva Clear ENT: Positive: Pharyngeal erythema, TMs normal Neck: Positive: Supple, Nontender, No Lymphadenopathy Respiratory Exam: Other - Barrel chest, midly tachypneic without accessory muscle use or retractions Respiratory: Positive: Decreased breath sounds - to both bases, Rhonchi, Expiration - prolonged. Negative: Stridor, Wheezing Cardiovascular: Positive: Bradycardia Abdomen Description: Positive: Nontender, No Organomegaly, Soft Bowel Sounds: Positive: Present Musculoskeletal: Positive: Strength Intact, ROM Intact Neurological: Positive: Alert, Muscle Tone Normal Skin Exam: Normal Skin: Negative: Rashes Diagnostics - Radiology No standard instances Radiology Interpretation Completed By: ED Physician Summary of Radiographic Findings: Chest xray with enlarged cardiac silhouette, and infiltrate in lilly lower lobe obscuring heart border, COPD changes, shadow of pacemaker in place. Respiratory Course/Dx - Course Course Of Treatment: We reviewed his complex medical history and current evidence of community acquired pneumonia. Recent medication changes and history of renal impairment add more complexity and warrant lab work up and possible admission. He is aware of the risk but declines transfer to the emergency room at this time and agrees to sign documentation that he is declining transport. He is willing to go to [facility] tomorrow for assessment, given that most of his care is now managed through them. He agrees to im injection of rocephin to initiate treatment, and I will write an rx for cefdinir, both safe to use in renal impairment and with lower risk of drug interactions. - Differential Dx/Diagnosis Differential Diagnosis/HQI/PQRI: Bronchitis, CHF, Lower Resp Infection, Sinusitis Provider Diagnosis: Pneumonia, community acquired Discharge ED - Sign-Out/Discharge Documenting (check all that apply): Patient Departure All imaging exams completed and their final reports reviewed: No - Discharge Plan Condition: Guarded Disposition: AGAINST MEDICAL ADVICE Prescriptions: Cefdinir [Cefdinir 300 MG CAP] 300 mg PO BID #20 cap Patient Education Materials: Community Acquired Pneumonia (ED) Referrals: Mili Taylor, [place] [Primary Care Provider] - Additional Instructions: You have been given an injection of rocephin to initiate treatment of pneumonia. As discussed, I advised emergency room evaluation due to your complex medical history, which increases your risk of sepsis, respiratory failure, heart attack , and progressive kidney failure. You are advised to go to the emergency room in [place] tomorrow as you have suggested, for evaluation to made in conjunction with your team of cardiologists there. If you experience chest pain or worsening shortness of breath overnight, I strongly urge that you call 911 and seek emergency care. I suggest that you try mucinex 600mg twice daily to ease the congestion in your throat. - Billing Disposition and Condition Condition: GUARDED Disposition: Against Medical Advice
[2019-01-09] MEDS ORDERED: cefTRIAXone VIAL(*) 1,000 MG VIAL IM ONE (18:11)
[2019-01-09] MEDS ORDERED: Lidocaine 1% MPF ** 5 ML VIAL INJ ONE (18:14)
--- NOTE | 2019-01-10 08:43 | UC ---
- Progress Note Progress Note: RADIOLOGY REPORT REVIEWED. There appears to be left basilar infiltrate noted. NO CHANGE IN MGMT. Course/Dx - Diagnoses Provider Diagnoses: Pneumonia, community acquired Discharge ED - Sign-Out/Discharge Documenting (check all that apply): Post-Discharge Follow Up All imaging exams completed and their final reports reviewed: Yes - Discharge Plan Condition: Guarded Disposition: AGAINST MEDICAL ADVICE Prescriptions: Cefdinir [Cefdinir 300 MG CAP] 300 mg PO BID #20 cap Patient Education Materials: Community Acquired Pneumonia (ED) Referrals: Mili Taylor [facility] [Primary Care Provider] - Additional Instructions: You have been given an injection of rocephin to initiate treatment of pneumonia. As discussed, I advised emergency room evaluation due to your complex medical history, which increases your risk of sepsis, respiratory failure, heart attack , and progressive kidney failure. You are advised to go to the emergency room in [place] tomorrow as you have suggested, for evaluation to made in conjunction with your team of cardiologists there. If you experience chest pain or worsening shortness of breath overnight, I strongly urge that you call 911 and seek emergency care. I suggest that you try mucinex 600mg twice daily to ease the congestion in your throat. - Billing Disposition and Condition Condition: GUARDED Disposition: Against Medical Advice
== END 2019-01-09 18:45 | disposition left against medical advice (07) ==
LOC: UCEAST 16:53
DX: J18.9 Pneumonia, unspecified organism (principal); I50.9 Heart failure, unspecified; I47.2 Ventricular tachycardia; Z95.0 Presence of cardiac pacemaker; Z95.810 Presence of automatic (implantable) cardiac defibrillator; J44.9 Chronic obstructive pulmonary disease, unspecified; I25.10 Atherosclerotic heart disease of native coronary artery without angina pectoris; Z87.891 Personal history of nicotine dependence
CPT/HCPCS: 71046; 99212; G0463; J0696

== ENCOUNTER 2019-01-31 12:56 | Emergency (ER) | payer MEDICARE ==
[2019-01-31 13:10] VITALS: BP 148/50
--- NOTE | 2019-01-31 15:03 | UC ---
Respiratory Complaint HPI - HPI Summary HPI Summary: 73 year old male with complicated medical history onlined in recent visit on 01/10. H/o cardiac bypass with defib placed, no pacer, with baseline HR of 30- 40 without symptoms, h/o whipple for noncancerous mass, h/o COPD with frequent sinus/ PNA infections. Patient recently seen on 01/10, dx'd with PNA, given ABX. Patient states symptoms completed resolved, however noted in past 2-3 days to have increase in sinus congestion with some SOB typical of his sinus infections in the past. Patient states he had frequent infections, no resistence to ABX. 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 NO ENT surgeries, but was told has enlarged adenoids which makes him more likely for infections by ENT No fever, chills. overall feeling well. NO cough. NO GI complaints. - History of Current Complaint Chief Complaint: UCRespiratory Stated Complaint: sinuS CONGESTION Time Seen by Provider: 01/31/19 13:49 Hx Obtained From: Patient Onset/Duration: Sudden Onset, Lasting Days Timing: Constant Severity Initially: Moderate Severity Currently: Moderate Pain Intensity: 1 Pain Scale Used: 0-10 Numeric Character: Cough: Nonproductive Aggravating Factors: Deep Breaths Associated Signs And Symptoms: Positive: URI, Nasal Congestion. Negative: Fever , Chills, Wheezing, Calf Pain, Calf Swelling - Allergies/Home Medications Allergies/Adverse Reactions: Allergies Allergy/AdvReac Type Severity Reaction Status Date / Time environmental Allergy Eyes Uncoded 01/31/19 13:10 Itchy/Swollen/Red/Watery PMH/Surg Hx/FS Hx/Imm Hx Previously Healthy: No Cardiovascular History: Cardiac Disease, Pacemaker/ICD, Congestive Heart Failure Respiratory History: COPD - Surgical History Surgical History: Yes Surgery Procedure, Year, and Place: abdominal hernia, bypass, mitral valve replair; ICD/Pacemaker placed; Open heart Surgery x 2; Whipple 2008; Plastic Surgery - Family History Known Family History: Positive: Diabetes, Other - [place], prostate cancer, lung disease, abdominal cancer; mr MAC - Social History Alcohol Use: Weekly Substance Use Type: None Smoking Status (MU): Former Smoker Review of Systems All Other Systems Reviewed And Are Negative: Yes Constitutional: Positive: Fatigue. Negative: Fever, Chills ENT: Positive: Sore Throat, Nasal Discharge, Sinus Congestion, Sinus Pain/ Tenderness Respiratory: Positive: Shortness Of Breath - mild, Cough Is Patient Immunocompromised?: No Physical Exam Triage Information Reviewed: Yes Appearance: Well-Appearing, No Pain Distress, Well-Nourished Vital Signs: Initial Vital Signs Temp 97 F 01/31/19 13:00 Pulse 35 01/31/19 13:00 Resp 18 01/31/19 13:00 BP 148/50 01/31/19 13:00 Pulse Ox 99 01/31/19 13:00 Vital Signs Reviewed: Yes Eyes: Positive: Conjunctiva Clear ENT: Positive: Pharynx normal, TMs normal, Sinus tenderness - b/l submand, max, Uvula midline. Negative: Pharyngeal erythema, TM bulging, TM dull, TM red, Tonsillar swelling, Tonsillar exudate Neck: Positive: Supple, Nontender, No Lymphadenopathy Respiratory: Positive: Chest non-tender, Lungs clear, Normal breath sounds, No respiratory distress. Negative: Crackles, Rhonchi, Stridor, Wheezing Cardiovascular: Positive: No Murmur, Bradycardia Neurological Exam: Normal Psychological Exam: Normal Respiratory Course/Dx - Course Course Of Treatment: CXR- improved from prior exams, no active disease. Sinusitis: - Antibiotics as directed - Increase fluid intake - Follow up with primary physician if increased symptoms, or go to ER with worsening symptoms. - Differential Dx/Diagnosis Differential Diagnosis/HQI/PQRI: Bronchitis, Laryngitis, Lower Resp Infection, Sinusitis Provider Diagnosis: Sinusitis Discharge ED - Sign-Out/Discharge Documenting (check all that apply): Patient Departure All imaging exams completed and their final reports reviewed: Yes - Discharge Plan Condition: Fair Disposition: HOME Prescriptions: DOXYcycline CAP(*) [DOXYcycline 100MG CAP(*)] 100 mg PO BID #14 cap Patient Education Materials: Sinusitis (ED) Referrals: No Primary Care Phys,NOPCP [Primary Care Provider] - Additional Instructions: Sinusitis: - Antibiotics as directed - Increase fluid intake - Follow up with primary physician if increased symptoms, or go to ER with worsening symptoms. - Billing Disposition and Condition Condition: FAIR Disposition: Home
== END 2019-01-31 15:19 | disposition home or self-care (01) ==
LOC: UCEAST 12:56
DX: J32.9 Chronic sinusitis, unspecified (principal); J44.9 Chronic obstructive pulmonary disease, unspecified; I50.9 Heart failure, unspecified; Z87.891 Personal history of nicotine dependence; E83.42 Hypomagnesemia; I25.5 Ischemic cardiomyopathy
CPT/HCPCS: 36415; 71046; 80053; 83735; 83880; 85027; 99212; G0463